=== PATIENT | female | born 1985 | race African-American/Black ===

== ENCOUNTER 2020-09-15 17:07 | Emergency (ER) | payer OTHER ==
[2020-09-15 17:35] VITALS: BP 120/79
[2020-09-15] MEDS ORDERED: IBUPROFEN 600 MG TABLET PO ONE (18:51)
[2020-09-15] MEDS ORDERED: PREDNISONE 20 MG TABLET PO ONE (18:51)
[2020-09-15] MEDS ORDERED: CYCLOBENZAPRINE HCL 10 MG TABLET PO ONE (18:51)
--- NOTE | 2020-09-15 18:52 | ER Document Report ---
HPI - HPI Patient complains to provider of: Right groin pain Time Seen by Provider: 09/15/20 18:43 Context: 35-year-old female who works for the [employer] presents to the emergency room complaining of right groin and right lower back pain. 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 States she started to run to get away from the dog. States she felt a sudden sharp pain to her right groin area. States she did not fall. States she turned and yelled at the dog and he stopped chasing her. She denies any previous trauma or history to her low back or right groin area. States is painful to walk. Did not take any medications prior to arrival. Pain does not radiate down her leg. She denies any loss of control of her bowels or bladder. No saddle anesthesia. No red flags. Denies . Associated Symptoms: None Exacerbated by: Movement, Walking Relieved by: Denies Similar symptoms previously: No Recently seen / treated by doctor: No - ROS Systems Reviewed and Negative: Yes All other systems reviewed and negative - NEURO Neurology: DENIES: Weakness - GASTROINTESTINAL Gastrointestinal: DENIES: Abdominal Pain, Nausea, Patient vomiting - URINARY Urinary: DENIES: Dysuria, Urgency - REPRODUCTIVE Reproductive: DENIES: : - MUSCULOSKELETAL Musculoskeletal: REPORTS: Extremity pain, Back Pain - DERM Skin Color: Normal, [place] Skin Problems: None Past Medical History - General Information source: Patient - Social History Smoking Status: Never Smoker Frequency of alcohol use: Occasional Drug Abuse: None Family History: Reviewed & Not Pertinent Vertical Provider Document - CONSTITUTIONAL Agree With Documented VS: Yes Exam Limitations: No Limitations General Appearance: Mild Distress - INFECTION CONTROL TRAVEL OUTSIDE OF THE [place] IN LAST 30 DAYS: No - HEENT HEENT: Atraumatic, Normocephalic - NECK Neck: Normal Inspection, Supple, Thyroid Normal - RESPIRATORY Respiratory: Breath Sounds Normal, No Respiratory Distress, Chest Non-Tender - CARDIOVASCULAR Cardiovascular: Regular Rate, Regular Rhythm, No Murmur - GI/ABDOMEN Gastrointestinal: Abdomen Soft, Abdomen Non-Tender, No Organomegaly, Normal Bowel Sounds. negative: Abdominal Guarding, Abdominal Rebound Notes: Nontender to palpation over the right groin. No hernia is palpated. - BACK Back: Abnormal Inspection - There is tenderness on palpation from L4-S1. There is tenderness over the right sciatic notch. There is negative straight leg raising bilaterally. - MUSCULOSKELETAL/EXTREMETIES Musculoskeletal/Extremeties: Non-Tender Notes: Painful range of motion with lifting of right leg. There is no obvious deformity noted. Full range of motion with internal and external rotation of the right hip. Right hip is nontender to palpation. No obvious deformity. Leg is not shortened. - NEURO Level of Consciousness: Awake, Alert, Appropriate Motor/Sensory: No Motor Deficit, No Sensory Deficit Notes: Patient is ambulatory with slight limping noted to the right leg. She is neurovascularly intact. Course - Re-evaluation Re-evalutation: 09/15/20 19:51 Unable to locate the patient multiple times to reevaluate and discharge patient home. - Vital Signs Vital signs: Temp Pulse Resp BP Pulse Ox 98.1 F 93 16 120/79 100 09/15/20 17:31 09/15/20 17:31 09/15/20 17:31 09/15/20 17:31 09/15/20 17:31 Discharge - Discharge Clinical Impression: Strain of right groin Strain of lumbar paraspinal muscle Qualifiers: Encounter type: initial encounter Qualified Code(s): S39.012A - Strain of muscle, fascia and tendon of lower back, initial encounter Condition: Stable Disposition: ELOPED Instructions: Muscle Strain ([facility]) Additional Instructions: Heat 20 minutes 3 times a day. Medications as prescribed. Can take Tylenol and or Motrin as needed for pain along with the prednisone and Flexeril. 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 No driving while taking the Flexeril. Return to the emergency room for any new or worsening symptoms.
== END 2020-09-15 19:51 | disposition left against medical advice (07) ==
LOC: ER 17:07
DX: S39.011A Strain of muscle, fascia and tendon of abdomen, initial encounter (principal); S39.012A Strain of muscle, fascia and tendon of lower back, initial encounter; X50.0XXA Overexertion from strenuous movement or load, initial encounter; Y99.0 Civilian activity done for income or pay
CPT/HCPCS: 99281; J7512

== ENCOUNTER 2020-10-15 10:55 | Emergency (ER) | payer OTHER ==
--- NOTE | 2020-10-15 11:23 | ER Document Report ---
ED General - General Chief Complaint: Groin Pain Stated Complaint: GROIN PAIN Time Seen by Provider: 10/15/20 11:14 Primary Care Provider: KEISHA SANTIAGO MD [ACTIVE STAFF] - Follow up as needed TRAVEL OUTSIDE OF THE [place] IN LAST 30 DAYS: No - HPI Notes: 35-year-old female presents to ED for evaluation of right lower back and right groin pain starting Sep 15. Patient notes that she was initially seen here unable to follow-up with anyone for Worker's Comp. Patient states that she did not receive the prescriptions that she was sent to as she does not know where they were sent. Reports she recently relocated to this area. She does not have a local pharmacy. Patient notes the pain starts in her low back and radiates down into her groin. Notes increased difficulties with ambulation. Patient denies fever, chills, nausea, vomiting, chest pain, shortness of breath, abdominal pain, gait disturbance, saddle anesthesia, bowel/bladder dysfunction, paresthesias or weakness. - Related Data Allergies/Adverse Reactions: No Known Allergies Allergy (Verified 10/15/20 11:06) Past Medical History - Social History Smoking Status: Never Smoker Chew tobacco use (# tins/day): No Frequency of alcohol use: None Drug Abuse: None Family History: Reviewed & Not Pertinent Review of Systems - Review of Systems Notes: Constitutional: Negative for fever. HENT: Negative for sore throat. Eyes: Negative for visual changes. Cardiovascular: Negative for chest pain. Respiratory: Negative for shortness of breath. Gastrointestinal: Negative for abdominal pain, vomiting or diarrhea. Genitourinary: Negative for dysuria. Musculoskeletal: + for back pain. Skin: Negative for rash. Neurological: Negative for headaches, weakness or numbness. 10 point ROS negative except as marked above and in HPI. Physical Exam - Vital signs Vitals: Temp Pulse Resp BP Pulse Ox 98.2 F 85 16 109/71 98 10/15/20 11:02 10/15/20 11:02 10/15/20 11:02 10/15/20 11:02 10/15/20 11:02 General: No acute distress. Alert and oriented x3. Skin: Intact without any jaundice, pallor, or erythema. Warm and dry. Heart: Regular rate and rhythm. S1,S2. No murmurs, rubs, or gallops. Lungs: Clear to ausculation bilaterally. No wheezes, rhonchi, rales. Equal chest expansion. No retractions. Abdomen: Soft, nontender to palpation, nondistended. Positive bowel sounds in all 4 quadrants. No masses. No CVA tenderness bilaterally. Cervical spine/Thoracic spine/Lumbosacral spine: No tendeness over spinous processes. Right sided lumbosacral paraspinous muscular tenderness. No edema, erythema, warmth, crepitance, step- off or deformity. Full range of motion. Extremities: Strength 5+ in bilateral upper and lower extremities. Deep tendon reflexes are 2+ bilaterally. Tactile sensation is intact. Brisk capillary refill. Radial and pedal pulses 2+ bilaterally. + straight leg raise to lower extremity bilaterally. Gait steady. Neuro: GCS 15. Moving all extremities without discomfort. Psych: Mood and affect appropriate. Course - Re-evaluation Re-evalutation: 10/15/20 11:18 35-year-old female presents to ED for evaluation of low back pain and groin pain. Patient did not have any symptoms concerning for cauda equina syndrome or abscess. Patient was evaluated with CT of the lumbar spine. No fractures or evidence of disc herniations was noted. Results were discussed with the anthony ent. Pain is most likely muscular in nature. Patient will be treated symptomatically with Flexeril, and tordol. Patient was advised to avoid driving, operating heavy machinery, or drinking alcohol when taking narotic pain medication and/or muscle relaxers. Advised no heavy lifting or twisting. Patient is advised to alternate ice and heat to the affected area 20 minutes on and 20 minutes off throughout the day. Patient is advised to follow up with their primary doctor. Patient understands that they may need to follow up with an orthopedist and may need an MRI for further evaluation. Patient is advised to return if any worsening of symptoms. Patient understands indications to return to the ER. Patient is agreeable with this plan. 10/15/20 13:20 - Vital Signs Vital signs: Temp Pulse Resp BP Pulse Ox 98.1 F 86 18 105/75 99 10/15/20 13:01 10/15/20 13:01 10/15/20 13:01 10/15/20 13:01 10/15/20 13:01 - Laboratory Results Laboratory Results Interpreted: 10/15/20 11:30 Ur Leukocyte Esterase TRACE H Critical Laboratory Results Reviewed: No Critical Results - Radiology Results Critical Radiology Results Reviewed: No Critical Results Discharge - Discharge Clinical Impression: Low back pain Qualifiers: Chronicity: acute Back pain laterality: unspecified Sciatica presence: without sciatica Qualified Code(s): M54.5 - Low back pain Low back strain Qualifiers: Encounter type: initial encounter Qualified Code(s): S39.012A - Strain of muscle, fascia and tendon of lower back, initial encounter Condition: Stable Disposition: HOME, SELF-CARE Instructions: Low Back Pain ([facility]) Prescriptions: Ketorolac Tromethamine [Toradol 10 mg Tablet] 10 mg PO Q8HP PRN #15 tablet PRN Reason: Cyclobenzaprine HCl [Flexeril 10 mg Tablet] 10 mg PO TIDP PRN #15 tab PRN Reason: Forms: Return to Work Referrals: KEISHA SANTIAGO MD [ACTIVE STAFF] - Follow up as needed
[2020-10-15 11:52] LABS: APPEARANCE,URINE SLIGHTLY-CLOUDY; BILIRUBIN,URINE NEGATIVE (NEGATIVE); COLOR,URINE YELLOW; GLUCOSE, URINE NEGATIVE (NEGATIVE); KETONES,URINE NEGATIVE (NEGATIVE); LEUKOCYTE ESTERASE,URINE TRACE (NEGATIVE); NITRITE,URINE NEGATIVE (NEGATIVE); PROTEIN,URINE NEGATIVE (NEGATIVE); URINE SPECIFIC GRAVITY 1.025; UROBILINOGEN,URINE NEGATIVE mg/dL (<2.0)
--- NOTE | 2020-10-15 12:28 | RADIOLOGY REPORT (SQ) ---
EXAM DESCRIPTION: CT LUMBAR SPINE WITHOUT IMAGES COMPLETED DATE/TIME: 10/15/2020 12:17 pm REASON FOR STUDY: low back pain COMPARISON: None. TECHNIQUE: Axial images acquired through the lumbar spine without intravenous contrast. Images revi ewed with lung, soft tissue and bone windows. Reconstructed coronal and sagittal MPR images reviewed . All images stored on PACS. All CT scanners at this facility use dose modulation, iterative reconstruction, and/or weight based d osing when appropriate to reduce radiation dose to as low as reasonably achievable (ALARA). [facility]: Dose Right [facility]: CareDose [facility]: Dose Right [facility]: Teradose 4D [facility]: [employer] LIMITATIONS: None. FINDINGS: SEGMENTATION: There are 4 lumbar-type vertebral bodies and a transitional L5 segment. ALIGNMENT: Normal. VERTEBRAL BODIES: The lumbar vertebral body heights are preserved. There is no fracture. DISCS: The intervertebral discs are preserved. PEDICLES, TRANSVERSE PROCESSES: Intact. FACETS, POSTERIOR ELEMENTS: Intact. HARDWARE: None in the spine. VISUALIZED RIBS: No fractures. SOFT TISSUES: No acute abnormality. OTHER: No other findings. IMPRESSION: No acute fracture or malalignment of the lumbar spine. TECHNICAL DOCUMENTATION: JOB ID: [id number] Quality ID # [id number]: Final reports with documentation of one or more dose reduction techniques (e.g., Au tomated exposure control, adjustment of the mA and/or kV according to patient size, use of iterative reconstruction technique) 2010 [employer]- All Rights Reserved Reading location - IP/workstation name: [email or web address]
[2020-10-15 13:03] VITALS: BP 105/75
== END 2020-10-15 13:13 | disposition home or self-care (01) ==
LOC: ER 10:55
DX: S39.012A Strain of muscle, fascia and tendon of lower back, initial encounter (principal); R10.30 Lower abdominal pain, unspecified; X58.XXXA Exposure to other specified factors, initial encounter
CPT/HCPCS: 72131; 81001; 81025; 99284